=== PATIENT | female | born 1950 | race Caucasian/White ===

== ENCOUNTER 2018-09-09 07:31 | Day surgery (SDC) | payer OTHER ==
[2018-09-08 11:41] VITALS: BMI 29.3
--- NOTE | 2018-09-08 11:44 | HP ---
CHIEF COMPLAINT: Major Depressive Disorder PCP: Dr. Ronnie Mendoza [phone] [facility] HISTORY OF PRESENT ILLNESS: 68 year-old female with a PMH significant for HTN, HLD, Contreras's esophagus, asthma, borderline diabetes, and depression. Patient will be initiating ECT here at [facility] on 09/09/[address] Schneider. Recent Events: --none reported PAST MEDICAL HISTORY: Hypertension Hyperlipidemia Contreras's esophagus Asthma Seasonal allergies Borderline diabetes Major depressive disorder [facility] PAST SURGICAL HISTORY: Tonsillectomy - child Ovarian cyst removal - age 26 Shah's arthroscopy bilateral feet - 2015 Social History: Smoking: never Alcohol: occasional Drugs: no Allergies No Known Drug Allergies Allergy (Verified 09/08/18 11:22) HOME MEDICATIONS: Home Medications Medication Instructions Recorded Aripiprazole 7.5 mg PO DAILY 09/08/18 Atorvastatin Ca [Lipitor] 10 mg PO DAILY 09/08/18 Quinapril HCl 10 mg PO HS 09/08/18 Vortioxetine Hydrobromide 20 mg PO DAILY 09/08/18 [Trintellix] clonazePAM [Klonopin -] 0.25 mg PO BID 09/08/18 clonazePAM [Klonopin -] 0.5 mg PO HS 09/08/18 traZODone HCL [Trazodone HCl] 50 mg PO HS 09/08/18 REVIEW OF SYSTEMS CONSTITUTIONAL: Absent: fever, chills, diaphoresis, generalized weakness, malaise, loss of appetite, weight change HEENT: Absent: rhinorrhea, nasal congestion, throat pain, throat swelling, difficulty swallowing, mouth swelling, ear pain, eye pain, visual changes CARDIOVASCULAR: Absent: chest pain, syncope, palpitations, irregular heart rate, lightheadedness , peripheral edema RESPIRATORY: Absent: cough, shortness of breath, dyspnea with exertion, orthopnea, wheezing, stridor, hemoptysis GASTROINTESTINAL: Absent: abdominal pain, abdominal distension, nausea, vomiting, diarrhea, constipation, melena, hematochezia GENITOURINARY: Absent: dysuria, frequency, urgency, hesitancy, hematuria, flank pain, genital pain MUSCULOSKELETAL: Absent: myalgia, arthralgia, joint swelling, back pain, neck pain SKIN: Absent: rash, itching, pallor HEMATOLOGIC/IMMUNOLOGIC: Absent: easy bleeding, easy bruising, lymphadenopathy, frequent infections ENDOCRINE: Absent: unexplained weight gain, unexplained weight loss, heat intolerance, cold intolerance NEUROLOGIC: Absent: headache, focal weakness or paresthesias, dizziness, unsteady gait, seizure, mental status changes, bladder or bowel incontinence PHYSICAL EXAMINATION Vitals: BP 129/65 p70 RR 18 SpO2 96% RA GENERAL: Awake, alert, and fully oriented, in no acute distress. HEAD: Normal with no signs of trauma. EYES: Pupils equal, round and reactive to light, sclera anicteric, conjunctiva clear. LUNGS: Breath sounds equal, clear to auscultation bilaterally. No wheezes, and no crackles. No accessory muscle use. HEART: Regular rate and rhythm, normal S1 and S2 ABDOMEN: Soft, nontender, not distended MUSCULOSKELETAL: Normal range of motion at all joints. No bony deformities or tenderness. No CVA tenderness. UPPER EXTREMITIES: 2+ pulses, warm, well-perfused. No cyanosis. No clubbing. No peripheral edema. LOWER EXTREMITIES: 2+ pulses, warm, well-perfused. No calf tenderness. No peripheral edema. NEUROLOGICAL: Cranial nerves II-XII intact. Normal speech. ASSESSMENT/PLAN: 68 year-old female with a PMH significant for HTN, HLD, Contreras's esophagus, asthma, borderline diabetes, and depression. Patient presents today for ECT. Cardiac --no cardiac history --Revised Cardiac Risk Index for Pre-Operative Risk: 0 points, 0.4% risk of major cardiac event Pulmonary --no pulmonary history Neurological --no neurological or neurosurgical history; no history of trauma Anesthesia --no reported problems with anesthesia ECT is a low risk procedure. The relative benefits of the planned procedure outweigh the relative risks for this patient at this time. Visit type - Emergency Visit Emergency Visit: No - New Patient This patient is new to me today: Yes Date on this admission: 09/09/18 - Critical Care Critical Care patient: No
--- NOTE | 2018-09-08 14:30 | EKG ---
Test Reason : Blood Pressure : / mmHG Vent. Rate : 065 BPM Atrial Rate : 065 BPM P-R Int : 176 ms QRS Dur : 150 ms QT Int : 472 ms P-R-T Axes : 025 -03 088 degrees QTc Int : 490 ms NORMAL SINUS RHYTHM LEFT BUNDLE BRANCH BLOCK ABNORMAL ECG NO PREVIOUS ECGS AVAILABLE Confirmed by HAYLEY BARCLAY, SANCHEZ ([id number]) on 09/08/2018 2:30:15 PM Referred By: Jose A Schneider Confirmed By:SANCHEZ HARDY MD
[2018-09-09] MEDS ORDERED: KETAMINE HCL 500 MG/10 ML VIAL ONE (08:37)
[2018-09-09 09:43] VITALS: TEMP 97.9
[2018-09-09] MEDS ORDERED: ONDANSETRON 4 MG/2 ML VIAL IVPUSH PRN (09:43)
[2018-09-09] MEDS ORDERED: LACTATED RINGERS SOLUTION 1,000 ML IV SCH (09:45)
[2018-09-09 10:36] VITALS: BP 140/73; PULSE 74
== END 2018-09-09 10:25 | disposition home or self-care (01) ==
LOC: FECT 07:31
PROVIDERS: ATTEND Psychiatry & Neurology Psychiatry
PROC: GZB4ZZZ Other Electroconvulsive Therapy (ICD-10-PCS; principal; 2018-09-09 08:30)
DX: F33.2 Major depressive disorder, recurrent severe without psychotic features (principal)
CPT/HCPCS: 90870; 93005; 93010; 94760

== ENCOUNTER 2018-09-12 05:48 | Day surgery (SDC) | payer OTHER ==
[2018-09-09 10:47] VITALS: BMI 29.3
[2018-09-12] MEDS ORDERED: KETAMINE HCL 500 MG/10 ML VIAL ONE (07:46)
[2018-09-12 08:58] VITALS: BP 132/57; PULSE 70; TEMP 97.4
== END 2018-09-12 09:09 | disposition home or self-care (01) ==
LOC: FECT 05:48
PROVIDERS: ATTEND Psychiatry & Neurology Psychiatry
PROC: GZB4ZZZ Other Electroconvulsive Therapy (ICD-10-PCS; principal; 2018-09-12 08:00)
DX: F33.2 Major depressive disorder, recurrent severe without psychotic features (principal)
CPT/HCPCS: 90870; 94760

== ENCOUNTER 2018-09-14 05:41 | Day surgery (SDC) | payer OTHER ==
[2018-09-14 06:35] VITALS: BMI 29.3
[2018-09-14] MEDS ORDERED: KETAMINE HCL 500 MG/10 ML VIAL ONE (06:59)
[2018-09-14 08:03] VITALS: TEMP 98.4
[2018-09-14 08:25] VITALS: BP 112/81; PULSE 76
== END 2018-09-14 08:27 | disposition home or self-care (01) ==
LOC: FECT 05:41
PROVIDERS: ATTEND Psychiatry & Neurology Psychiatry
PROC: GZB4ZZZ Other Electroconvulsive Therapy (ICD-10-PCS; principal; 2018-09-14 07:30)
DX: F32.9 Major depressive disorder, single episode, unspecified (principal)
CPT/HCPCS: 90870; 94760

== ENCOUNTER 2018-09-16 05:42 | Day surgery (SDC) | payer OTHER ==
[2018-09-16 06:45] VITALS: BMI 29.3
[2018-09-16] MEDS ORDERED: KETAMINE HCL 500 MG/10 ML VIAL ONE (08:04)
[2018-09-16] MEDS ORDERED: ONDANSETRON 4 MG/2 ML VIAL IVPUSH PRN (08:25)
[2018-09-16] MEDS ORDERED: ACETAMINOPHEN 325 MG TABLET (FP) PO PRN (08:25)
[2018-09-16] MEDS ORDERED: LACTATED RINGERS SOLUTION 1,000 ML IV SCH (08:30)
[2018-09-16 09:01] VITALS: TEMP 98
[2018-09-16 09:24] VITALS: BP 130/70; PULSE 69
== END 2018-09-16 09:25 | disposition home or self-care (01) ==
LOC: FECT 05:42
PROVIDERS: ATTEND Psychiatry & Neurology Psychiatry
PROC: GZB4ZZZ Other Electroconvulsive Therapy (ICD-10-PCS; principal; 2018-09-16 07:15)
DX: F32.9 Major depressive disorder, single episode, unspecified (principal)
CPT/HCPCS: 90870; 94760

== ENCOUNTER 2018-09-21 05:48 | Day surgery (SDC) | payer OTHER | END 2018-09-21 08:40 | disposition home or self-care (01) | LOC: FECT 05:48 ==

== ENCOUNTER 2018-09-23 05:39 | Day surgery (SDC) | payer OTHER | END 2018-09-23 08:10 | disposition home or self-care (01) | LOC: FECT 05:39 | PROC: GZB4ZZZ Other Electroconvulsive Therapy (ICD-10-PCS; principal; 2018-09-23 07:00) | DX: F33.2 Major depressive disorder, recurrent severe without psychotic features (principal) ==

== ENCOUNTER 2018-09-28 06:13 | Day surgery (SDC) | payer OTHER | END 2018-09-28 08:50 | disposition home or self-care (01) | LOC: FECT 06:13 ==

== ENCOUNTER 2018-09-30 05:42 | Day surgery (SDC) | payer OTHER | END 2018-09-30 08:45 | disposition home or self-care (01) | LOC: FECT 05:42 ==

== ENCOUNTER 2018-10-03 05:41 | Day surgery (SDC) | payer OTHER | END 2018-10-03 08:32 | disposition home or self-care (01) | LOC: FECT 05:41 ==

== ENCOUNTER 2018-10-05 05:33 | Day surgery (SDC) | payer OTHER | END 2018-10-05 08:30 | disposition home or self-care (01) | LOC: FECT 05:33 | PROC: GZB4ZZZ Other Electroconvulsive Therapy (ICD-10-PCS; principal; 2018-10-05 07:00) | DX: F32.9 Major depressive disorder, single episode, unspecified (principal) ==

== ENCOUNTER 2018-10-07 05:27 | Day surgery (SDC) | payer OTHER | END 2018-10-07 09:08 | disposition home or self-care (01) | LOC: FECT 05:27 ==

== ENCOUNTER 2018-10-10 05:44 | Day surgery (SDC) | payer OTHER | END 2018-10-10 09:00 | disposition home or self-care (01) | LOC: FECT 05:44 ==

== ENCOUNTER 2018-10-12 05:43 | Day surgery (SDC) | payer OTHER ==
[2018-10-12 06:28] VITALS: BMI 29.3
[2018-10-12] MEDS ORDERED: KETAMINE HCL 500 MG/10 ML VIAL ONE (06:52)
[2018-10-12 07:55] VITALS: TEMP 97.6
[2018-10-12] MEDS ORDERED: ACETAMINOPHEN 325 MG TABLET (FP) PO PRN (08:06)
[2018-10-12] MEDS ORDERED: PROMETHAZINE HCL 25 MG/1 ML VIAL IVPUSH PRN (08:06)
[2018-10-12 08:14] VITALS: BP 121/72; PULSE 51
[2018-10-12] MEDS ORDERED: LACTATED RINGERS SOLUTION 1,000 ML IV SCH (08:15)
== END 2018-10-12 08:17 | disposition home or self-care (01) ==
LOC: FECT 05:43
PROVIDERS: ATTEND Psychiatry & Neurology Psychiatry
PROC: GZB4ZZZ Other Electroconvulsive Therapy (ICD-10-PCS; principal; 2018-10-12 07:00)
DX: F32.9 Major depressive disorder, single episode, unspecified (principal)
CPT/HCPCS: 90870; 94760

== ENCOUNTER 2018-10-18 05:50 | Day surgery (SDC) | payer OTHER | END 2018-10-18 08:35 | disposition home or self-care (01) | LOC: FECT 05:50 ==

== ENCOUNTER 2018-10-24 05:45 | Day surgery (SDC) | payer OTHER ==
[2018-10-24 06:34] VITALS: BMI 29.3
[2018-10-24] MEDS ORDERED: KETAMINE HCL 500 MG/10 ML VIAL ONE (06:57)
[2018-10-24] MEDS ORDERED: PROMETHAZINE HCL 25 MG/1 ML VIAL IVPUSH PRN (07:27)
[2018-10-24] MEDS ORDERED: ACETAMINOPHEN 325 MG TABLET (FP) PO PRN (07:27)
[2018-10-24] MEDS ORDERED: LACTATED RINGERS SOLUTION 1,000 ML IV SCH (07:30)
[2018-10-24 07:43] VITALS: TEMP 97.6
[2018-10-24 08:47] VITALS: BP 119/66; PULSE 60
== END 2018-10-24 08:35 | disposition home or self-care (01) ==
LOC: FECT 05:45
PROVIDERS: ATTEND Psychiatry & Neurology Psychiatry
PROC: GZB4ZZZ Other Electroconvulsive Therapy (ICD-10-PCS; principal; 2018-10-24 07:00)
DX: F33.2 Major depressive disorder, recurrent severe without psychotic features (principal)
CPT/HCPCS: 90870; 94760

== ENCOUNTER 2018-11-08 05:36 | Day surgery (SDC) | payer OTHER ==
[2018-11-08 06:55] VITALS: TEMP 98.3; BMI 29.9
[2018-11-08] MEDS ORDERED: KETAMINE HCL 500 MG/10 ML VIAL ONE (07:12)
[2018-11-08 08:55] VITALS: BP 139/69; PULSE 61
--- NOTE | 2018-11-10 14:10 | HP ---
CHIEF COMPLAINT: Major Depressive Disorder PCP: Dr. Ronnie Mendoza [phone] Primary Psychiatrist: Dr. Desmond Gordillo [place] HISTORY OF PRESENT ILLNESS: 68 year-old female with a PMH significant for HTN, HLD, Contreras's esophagus, asthma, borderline diabetes, and depression. Patient began ECT here at [facility] on 09/09/18. She presents today for ECT. Recent Events: --just returned from vacation in [place], feeling well Allergies No Known Drug Allergies Allergy (Verified 11/08/18 06:43) HOME MEDICATIONS: Home Medications Medication Instructions Recorded Aripiprazole 5 mg PO DAILY 09/08/18 Atorvastatin Ca [Lipitor] 10 mg PO DAILY 09/08/18 Quinapril HCl 10 mg PO HS 09/08/18 Vortioxetine Hydrobromide 20 mg PO DAILY 09/08/18 [Trintellix] clonazePAM [Klonopin -] 0.25 mg PO BID PRN 09/08/18 clonazePAM [Klonopin -] 0.5 mg PO HS 09/08/18 Zolpidem Tartrate [Ambien] 10 mg PO HS PRN 11/08/18 REVIEW OF SYSTEMS CONSTITUTIONAL: Absent: fever, chills, diaphoresis, generalized weakness, malaise, loss of appetite, weight change HEENT: Absent: rhinorrhea, nasal congestion, throat pain, throat swelling, difficulty swallowing, mouth swelling, ear pain, eye pain, visual changes CARDIOVASCULAR: Absent: chest pain, syncope, palpitations, irregular heart rate, lightheadedness , peripheral edema RESPIRATORY: Absent: cough, shortness of breath, dyspnea with exertion, orthopnea, wheezing, stridor, hemoptysis GASTROINTESTINAL: Absent: abdominal pain, abdominal distension, nausea, vomiting, diarrhea, constipation, melena, hematochezia GENITOURINARY: Absent: dysuria, frequency, urgency, hesitancy, hematuria, flank pain, genital pain MUSCULOSKELETAL: Absent: myalgia, arthralgia, joint swelling, back pain, neck pain SKIN: Absent: rash, itching, pallor HEMATOLOGIC/IMMUNOLOGIC: Absent: easy bleeding, easy bruising, lymphadenopathy, frequent infections ENDOCRINE: Absent: unexplained weight gain, unexplained weight loss, heat intolerance, cold intolerance NEUROLOGIC: Absent: headache, focal weakness or paresthesias, dizziness, unsteady gait, seizure, mental status changes, bladder or bowel incontinence PHYSICAL EXAMINATION Vital Signs Temperature 98.3 F 11/08/18 08:45 Pulse Rate 61 11/08/18 08:45 Respiratory Rate 18 11/08/18 08:45 Blood Pressure 139/69 11/08/18 08:45 O2 Sat by Pulse Oximetry (%) 97 11/08/18 08:40 GENERAL: Awake, alert, and fully oriented, in no acute distress. HEAD: Normal with no signs of trauma. EYES: Pupils equal, round and reactive to light, sclera anicteric, conjunctiva clear. LUNGS: Breath sounds equal, clear to auscultation bilaterally. No wheezes, and no crackles. No accessory muscle use. HEART: Regular rate and rhythm, normal S1 and S2 ABDOMEN: Soft, nontender, not distended MUSCULOSKELETAL: Normal range of motion at all joints. No bony deformities or tenderness. No CVA tenderness. UPPER EXTREMITIES: 2+ pulses, warm, well-perfused. No cyanosis. No clubbing. No peripheral edema. LOWER EXTREMITIES: 2+ pulses, warm, well-perfused. No calf tenderness. No peripheral edema. NEUROLOGICAL: Cranial nerves II-XII intact. Normal speech. ASSESSMENT/PLAN: 68 year-old female with a PMH significant for HTN, HLD, Contreras's esophagus, asthma, borderline diabetes, and depression. Patient presents today for ECT. Cardiac --no cardiac history --Revised Cardiac Risk Index for Pre-Operative Risk: 0 points, 0.4% risk of major cardiac event Pulmonary --no pulmonary history Neurological --no neurological or neurosurgical history; no history of trauma Anesthesia --no reported problems with anesthesia ECT is a low risk procedure. The relative benefits of the planned procedure outweigh the relative risks for this patient at this time. Visit type - Emergency Visit Emergency Visit: No - New Patient This patient is new to me today: Yes Date on this admission: 11/10/18 - Critical Care Critical Care patient: No
== END 2018-11-08 08:45 | disposition home or self-care (01) ==
LOC: FECT 05:36
PROVIDERS: ATTEND Psychiatry & Neurology Psychiatry
PROC: GZB4ZZZ Other Electroconvulsive Therapy (ICD-10-PCS; principal; 2018-11-08 07:00)
DX: F33.2 Major depressive disorder, recurrent severe without psychotic features (principal)
CPT/HCPCS: 90870; 94760

== ENCOUNTER 2018-11-22 05:41 | Day surgery (SDC) | payer OTHER ==
[2018-11-22 07:00] VITALS: BMI 29.9
[2018-11-22] MEDS ORDERED: KETAMINE HCL 500 MG/10 ML VIAL ONE (07:42)
[2018-11-22 08:47] VITALS: TEMP 97.4
[2018-11-22] MEDS ORDERED: oxyCODONE HCL 5 MG TABLET PO PRN (08:47)
[2018-11-22 09:08] VITALS: BP 129/79; PULSE 71
== END 2018-11-22 09:10 | disposition home or self-care (01) ==
LOC: FECT 05:41
PROVIDERS: ATTEND Psychiatry & Neurology Psychiatry
PROC: GZB4ZZZ Other Electroconvulsive Therapy (ICD-10-PCS; principal; 2018-11-22 07:15)
DX: F33.2 Major depressive disorder, recurrent severe without psychotic features (principal)
CPT/HCPCS: 90870; 94760

== ENCOUNTER 2018-12-06 05:36 | Day surgery (SDC) | payer OTHER | END 2018-12-06 08:50 | disposition home or self-care (01) | LOC: FECT 05:36 ==

== ENCOUNTER 2019-02-14 05:50 | Day surgery (SDC) | payer OTHER ==
[2019-02-14 07:34] VITALS: BMI 31.9
[2019-02-14] MEDS ORDERED: KETAMINE HCL 500 MG/10 ML VIAL ONE (08:10)
[2019-02-14 09:25] VITALS: TEMP 98.7
[2019-02-14 09:43] VITALS: BP 130/70; PULSE 77
--- NOTE | 2019-02-14 11:34 | HP ---
CHIEF COMPLAINT: Major Depressive Disorder PCP: Dr. Ronnie Mendoza [phone] Primary Psychiatrist: Dr. Desmond Gordillo [place] HISTORY OF PRESENT ILLNESS: 68 year-old female with a PMH significant for HTN, HLD, Contreras's esophagus, asthma, borderline diabetes, and depression. Patient began ECT here at [place] on 09/09/18. She presents today for ECT. Recent Events: --completed antibiotics for a sinus infection last month Allergies No Known Drug Allergies Allergy (Verified 11/08/18 06:43) HOME MEDICATIONS: Home Medications Medication Instructions Recorded Aripiprazole 5 mg PO DAILY 09/08/18 Atorvastatin Ca [Lipitor] 10 mg PO DAILY 09/08/18 Quinapril HCl 10 mg PO HS 09/08/18 Vortioxetine Hydrobromide 20 mg PO DAILY 09/08/18 [Trintellix] traZODone HCL [Trazodone HCl] 50 mg PO HS 11/22/18 Omeprazole 20 mg PO DAILY 02/13/19 REVIEW OF SYSTEMS CONSTITUTIONAL: Absent: fever, chills, diaphoresis, generalized weakness, malaise, loss of appetite, weight change HEENT: Absent: rhinorrhea, nasal congestion, throat pain, throat swelling, difficulty swallowing, mouth swelling, ear pain, eye pain, visual changes CARDIOVASCULAR: Absent: chest pain, syncope, palpitations, irregular heart rate, lightheadedness , peripheral edema RESPIRATORY: Absent: cough, shortness of breath, dyspnea with exertion, orthopnea, wheezing, stridor, hemoptysis GASTROINTESTINAL: Absent: abdominal pain, abdominal distension, nausea, vomiting, diarrhea, constipation, melena, hematochezia GENITOURINARY: Absent: dysuria, frequency, urgency, hesitancy, hematuria, flank pain, genital pain MUSCULOSKELETAL: Absent: myalgia, arthralgia, joint swelling, back pain, neck pain SKIN: Absent: rash, itching, pallor HEMATOLOGIC/IMMUNOLOGIC: Absent: easy bleeding, easy bruising, lymphadenopathy, frequent infections ENDOCRINE: Absent: unexplained weight gain, unexplained weight loss, heat intolerance, cold intolerance NEUROLOGIC: Absent: headache, focal weakness or paresthesias, dizziness, unsteady gait, seizure, mental status changes, bladder or bowel incontinence PHYSICAL EXAMINATION Vital Signs - 24 hr 02/14/19 02/14/19 02/14/19 07:21 08:45 08:50 Temperature 98.4 F Pulse Rate 65 69 79 Respiratory 18 16 17 Rate Blood Pressure 126/75 159/79 149/69 O2 Sat by Pulse 96 99 96 Oximetry (%) 02/14/19 02/14/19 02/14/19 08:55 09:00 09:06 Temperature 98.4 F Pulse Rate 73 80 80 Respiratory 15 16 16 Rate Blood Pressure 141/67 138/72 138/72 O2 Sat by Pulse 96 95 95 Oximetry (%) 02/14/19 02/14/19 02/14/19 09:10 09:40 09:45 Temperature 98.7 F 98.7 F 98.7 F Pulse Rate 71 77 77 Respiratory 18 18 18 Rate Blood Pressure 135/70 130/70 130/70 O2 Sat by Pulse 94 L 96 Oximetry (%) GENERAL: Awake, alert, and fully oriented, in no acute distress. HEAD: Normal with no signs of trauma. EYES: Pupils equal, round and reactive to light, sclera anicteric, conjunctiva clear. LUNGS: Breath sounds equal, clear to auscultation bilaterally. No wheezes, and no crackles. No accessory muscle use. HEART: Regular rate and rhythm, normal S1 and S2 ABDOMEN: Soft, nontender, not distended MUSCULOSKELETAL: Normal range of motion at all joints. No bony deformities or tenderness. No CVA tenderness. UPPER EXTREMITIES: 2+ pulses, warm, well-perfused. No cyanosis. No clubbing. No peripheral edema. LOWER EXTREMITIES: 2+ pulses, warm, well-perfused. No calf tenderness. No peripheral edema. NEUROLOGICAL: Cranial nerves II-XII intact. Normal speech. ASSESSMENT/PLAN: 68 year-old female with a PMH significant for HTN, HLD, Contreras's esophagus, asthma, borderline diabetes, and depression. Patient presents today for ECT. Cardiac --BP stable on quinapril --Revised Cardiac Risk Index for Pre-Operative Risk: 0 points, 0.4% risk of major cardiac event Pulmonary --no pulmonary history Neurological --no neurological or neurosurgical history; no history of trauma Anesthesia --no reported problems with anesthesia ECT is a low risk procedure. The relative benefits of the planned procedure outweigh the relative risks for this patient at this time. Visit type - Emergency Visit Emergency Visit: No - New Patient This patient is new to me today: Yes Date on this admission: 02/14/19 - Critical Care Critical Care patient: No
== END 2019-02-14 09:45 | disposition home or self-care (01) ==
LOC: FECT 05:50
PROVIDERS: ATTEND Psychiatry & Neurology Psychiatry
PROC: GZB4ZZZ Other Electroconvulsive Therapy (ICD-10-PCS; principal; 2019-02-14 08:15)
DX: F33.2 Major depressive disorder, recurrent severe without psychotic features (principal)
CPT/HCPCS: 90870; 94760

== ENCOUNTER 2019-02-22 05:48 | Day surgery (SDC) | payer OTHER ==
[2019-02-22 06:27] VITALS: BMI 31.9
[2019-02-22] MEDS ORDERED: KETAMINE HCL 500 MG/10 ML VIAL ONE (07:09)
[2019-02-22] MEDS ORDERED: ACETAMINOPHEN 500 MG TABLET (FP) PO PRN (08:00)
[2019-02-22] MEDS ORDERED: LACTATED RINGERS SOLUTION 1,000 ML IV SCH (08:00)
[2019-02-22] MEDS ORDERED: PROMETHAZINE HCL 25 MG/1 ML VIAL IVPUSH PRN (08:00)
[2019-02-22 08:05] VITALS: TEMP 98.4
[2019-02-22 08:30] LABS: BASO % 0.2 % (0-2.0); HEMATOCRIT 38.4 % (32.4-45.2); LYMPH % 24.6 % (8-40); MCH 29.8 pg (25.7-33.7); MEAN CELL VOLUME 87.8 fl (80-96); MEAN PLT VOLUME 8.2 fl (7.5-11.1); MONO % 5.7 % (3.8-10.2); NEUT % 68.5 % (42.8-82.8); PLATELET COUNT 201 K/MM3 (134-434); RBC 4.37 M/mm3 (3.60-5.2); RDW 12.3 % (11.6-15.6); WHITE BLOOD COUNT 5.3 K/mm3 (4.0-10.8)
[2019-02-22 08:41] VITALS: BP 140/70; PULSE 61
[2019-02-22 08:50] LABS: ALBUMIN 3.9 g/dl (3.4-5.0); BILIRUBIN,TOTAL 0.7 mg/dl (0.2-1); CALCIUM 9.3 mg/dl (8.5-10); CREATININE 0.6 mg/dl (0.55-1.3); MAGNESIUM 1.9 mg/dL (1.8-2.4); POTASSIUM 4.5 mmol/L (3.5-5.1); TOT PROT 6.7 g/dl (6.4-8.2)
== END 2019-02-22 08:40 | disposition home or self-care (01) ==
LOC: FECT 05:48
PROVIDERS: ATTEND Psychiatry & Neurology Psychiatry
PROC: GZB4ZZZ Other Electroconvulsive Therapy (ICD-10-PCS; principal; 2019-02-22 08:00)
DX: F32.9 Major depressive disorder, single episode, unspecified (principal)
CPT/HCPCS: 36415; 80053; 83735; 85025; 90870; 94760

== ENCOUNTER 2019-03-02 05:41 | Day surgery (SDC) | payer OTHER ==
[2019-03-02 07:00] VITALS: BMI 31.8
[2019-03-02] MEDS ORDERED: KETAMINE HCL 500 MG/10 ML VIAL ONE (07:50)
[2019-03-02 09:33] VITALS: BP 149/79; PULSE 79; TEMP 98.2
[2019-03-02] MEDS ORDERED: ACETAMINOPHEN 325 MG TABLET (FP) PO PRN (10:12)
[2019-03-02] MEDS ORDERED: ONDANSETRON 4 MG/2 ML VIAL IVPUSH PRN (10:12)
== END 2019-03-02 09:25 | disposition home or self-care (01) ==
LOC: FECT 05:41
PROVIDERS: ATTEND Psychiatry & Neurology Psychiatry
PROC: GZB4ZZZ Other Electroconvulsive Therapy (ICD-10-PCS; principal; 2019-03-02 07:30)
DX: F33.2 Major depressive disorder, recurrent severe without psychotic features (principal)
CPT/HCPCS: 90870; 94760

== ENCOUNTER 2019-03-07 06:40 | Day surgery (SDC) | payer OTHER ==
[2019-03-02 13:01] VITALS: BMI 31.8
[2019-03-07 07:01] VITALS: TEMP 98.2
[2019-03-07] MEDS ORDERED: KETAMINE HCL 500 MG/10 ML VIAL ONE (07:32)
[2019-03-07 10:04] VITALS: BP 132/81; PULSE 71
== END 2019-03-07 09:20 | disposition home or self-care (01) ==
LOC: FECT 06:40
PROVIDERS: ATTEND Psychiatry & Neurology Psychiatry
PROC: GZB4ZZZ Other Electroconvulsive Therapy (ICD-10-PCS; principal; 2019-03-07 07:45)
DX: F32.9 Major depressive disorder, single episode, unspecified (principal)
CPT/HCPCS: 90870; 94760

== ENCOUNTER 2019-03-10 05:32 | Day surgery (SDC) | payer OTHER ==
[2019-03-10 07:08] VITALS: BMI 30.7
[2019-03-10] MEDS ORDERED: KETAMINE HCL 500 MG/10 ML VIAL ONE (07:32)
[2019-03-10 08:41] VITALS: TEMP 97.8
[2019-03-10 09:12] VITALS: BP 123/74; PULSE 71
--- NOTE | 2019-03-14 10:45 | EKG ---
Test Reason : Blood Pressure : / mmHG Vent. Rate : 075 BPM Atrial Rate : 075 BPM P-R Int : 174 ms QRS Dur : 138 ms QT Int : 456 ms P-R-T Axes : 039 -07 111 degrees QTc Int : 509 ms NORMAL SINUS RHYTHM LEFT BUNDLE BRANCH BLOCK ABNORMAL ECG Confirmed by MD PETERSON, MICHELE ([id number]) on 03/14/2019 10:44:43 AM Referred By: Jose A Schneider Confirmed By:MICHELE WINKLER MD
== END 2019-03-10 09:16 | disposition home or self-care (01) ==
LOC: FECT 05:32
PROVIDERS: ATTEND Psychiatry & Neurology Psychiatry
PROC: GZB4ZZZ Other Electroconvulsive Therapy (ICD-10-PCS; principal; 2019-03-10 07:45)
DX: F32.9 Major depressive disorder, single episode, unspecified (principal)
CPT/HCPCS: 90870; 93005; 94760

== ENCOUNTER 2019-03-14 05:49 | Day surgery (SDC) | payer OTHER ==
[2019-03-10 14:46] VITALS: BMI 30.7
[2019-03-14] MEDS ORDERED: KETAMINE HCL 500 MG/10 ML VIAL ONE (08:00)
[2019-03-14] MEDS ORDERED: ACETAMINOPHEN 325 MG TABLET (FP) PO PRN (09:09)
[2019-03-14 09:10] VITALS: TEMP 98.2
[2019-03-14 09:21] VITALS: BP 138/71; PULSE 68
--- NOTE | 2019-03-14 10:32 | HP ---
CHIEF COMPLAINT: Major Depressive Disorder PCP: Dr. Ronnie Mendoza [phone] Primary Psychiatrist: Dr. Desmond Gordillo [place] HISTORY OF PRESENT ILLNESS: 68 year-old female with a PMH significant for HTN, HLD, Contreras's esophagus, asthma, borderline diabetes, and depression. Patient began ECT here at [place] on 09/09/18. She presents today for ECT. Recent Events: --completed antibiotics for a sinus infection last month Allergies No Known Drug Allergies Allergy (Verified 11/08/18 06:43) HOME MEDICATIONS: Home Medications Medication Instructions Recorded Aripiprazole 5 mg PO DAILY 09/08/18 Atorvastatin Ca [Lipitor] 10 mg PO DAILY 09/08/18 Quinapril HCl 10 mg PO HS 09/08/18 Vortioxetine Hydrobromide 20 mg PO DAILY 09/08/18 [Trintellix] traZODone HCL [Trazodone HCl] 50 mg PO HS 11/22/18 Omeprazole 20 mg PO DAILY 02/13/19 REVIEW OF SYSTEMS CONSTITUTIONAL: Absent: fever, chills, diaphoresis, generalized weakness, malaise, loss of appetite, weight change HEENT: Absent: rhinorrhea, nasal congestion, throat pain, throat swelling, difficulty swallowing, mouth swelling, ear pain, eye pain, visual changes CARDIOVASCULAR: Absent: chest pain, syncope, palpitations, irregular heart rate, lightheadedness , peripheral edema RESPIRATORY: Absent: cough, shortness of breath, dyspnea with exertion, orthopnea, wheezing, stridor, hemoptysis GASTROINTESTINAL: Absent: abdominal pain, abdominal distension, nausea, vomiting, diarrhea, constipation, melena, hematochezia GENITOURINARY: Absent: dysuria, frequency, urgency, hesitancy, hematuria, flank pain, genital pain MUSCULOSKELETAL: Absent: myalgia, arthralgia, joint swelling, back pain, neck pain SKIN: Absent: rash, itching, pallor HEMATOLOGIC/IMMUNOLOGIC: Absent: easy bleeding, easy bruising, lymphadenopathy, frequent infections ENDOCRINE: Absent: unexplained weight gain, unexplained weight loss, heat intolerance, cold intolerance NEUROLOGIC: Absent: headache, focal weakness or paresthesias, dizziness, unsteady gait, seizure, mental status changes, bladder or bowel incontinence PHYSICAL EXAMINATION Vital Signs - 24 hr 03/14/19 03/14/19 03/14/19 07:09 08:25 08:30 Temperature 98.1 F Pulse Rate 63 72 70 Respiratory 18 18 18 Rate Blood Pressure 137/73 156/66 152/73 O2 Sat by Pulse 94 L 97 97 Oximetry (%) 03/14/19 03/14/19 03/14/19 08:35 08:45 09:17 Temperature 98.2 F Pulse Rate 71 65 68 Respiratory 19 18 18 Rate Blood Pressure 150/70 144/72 138/71 O2 Sat by Pulse 98 95 97 Oximetry (%) 03/14/19 09:21 Temperature 98.2 F Pulse Rate 68 Respiratory 18 Rate Blood Pressure 138/71 O2 Sat by Pulse Oximetry (%) GENERAL: Awake, alert, and fully oriented, in no acute distress. HEAD: Normal with no signs of trauma. EYES: Pupils equal, round and reactive to light, sclera anicteric, conjunctiva clear. LUNGS: Breath sounds equal, clear to auscultation bilaterally. No wheezes, and no crackles. No accessory muscle use. HEART: Regular rate and rhythm, normal S1 and S2 ABDOMEN: Soft, nontender, not distended MUSCULOSKELETAL: Normal range of motion at all joints. No bony deformities or tenderness. No CVA tenderness. UPPER EXTREMITIES: 2+ pulses, warm, well-perfused. No cyanosis. No clubbing. No peripheral edema. LOWER EXTREMITIES: 2+ pulses, warm, well-perfused. No calf tenderness. No peripheral edema. NEUROLOGICAL: Cranial nerves II-XII intact. Normal speech. ASSESSMENT/PLAN: 68 year-old female with a PMH significant for HTN, HLD, Contreras's esophagus, asthma, borderline diabetes, and depression. Patient presents today for ECT. Cardiac --BP stable on quinapril --Revised Cardiac Risk Index for Pre-Operative Risk: 0 points, 0.4% risk of major cardiac event Pulmonary --no pulmonary history Neurological --no neurological or neurosurgical history; no history of trauma Anesthesia --no reported problems with anesthesia ECT is a low risk procedure. The relative benefits of the planned procedure outweigh the relative risks for this patient at this time. Visit type - Emergency Visit Emergency Visit: No - New Patient This patient is new to me today: Yes Date on this admission: 03/15/19 - Critical Care Critical Care patient: No
== END 2019-03-14 09:23 | disposition home or self-care (01) ==
LOC: FECT 05:49
PROVIDERS: ATTEND Psychiatry & Neurology Psychiatry
PROC: GZB4ZZZ Other Electroconvulsive Therapy (ICD-10-PCS; principal; 2019-03-14 08:15)
DX: F32.9 Major depressive disorder, single episode, unspecified (principal)
CPT/HCPCS: 90870; 94760

== ENCOUNTER 2019-03-17 05:42 | Day surgery (SDC) | payer OTHER ==
[2019-03-17 06:26] VITALS: BMI 30.7
[2019-03-17] MEDS ORDERED: KETAMINE HCL 500 MG/10 ML VIAL ONE (06:59)
[2019-03-17 08:08] VITALS: TEMP 98.2
[2019-03-17 09:15] VITALS: BP 120/62; PULSE 66
== END 2019-03-17 09:00 | disposition home or self-care (01) ==
LOC: FECT 05:42
PROVIDERS: ATTEND Psychiatry & Neurology Psychiatry
PROC: GZB4ZZZ Other Electroconvulsive Therapy (ICD-10-PCS; principal; 2019-03-17 07:45)
DX: F33.2 Major depressive disorder, recurrent severe without psychotic features (principal)
CPT/HCPCS: 90870; 94760

== ENCOUNTER 2019-03-20 05:52 | Day surgery (SDC) | payer OTHER ==
[2019-03-17 18:04] VITALS: BMI 30.7
[2019-03-20] MEDS ORDERED: KETAMINE HCL 500 MG/10 ML VIAL ONE (06:55)
[2019-03-20 07:50] VITALS: TEMP 97.6
[2019-03-20 08:18] VITALS: BP 124/68; PULSE 64
== END 2019-03-20 08:20 | disposition home or self-care (01) ==
LOC: FECT 05:52
PROVIDERS: ATTEND Psychiatry & Neurology Psychiatry
PROC: GZB4ZZZ Other Electroconvulsive Therapy (ICD-10-PCS; principal; 2019-03-20 08:15)
DX: F33.2 Major depressive disorder, recurrent severe without psychotic features (principal)
CPT/HCPCS: 90870; 94760

== ENCOUNTER 2019-03-22 05:55 | Day surgery (SDC) | payer OTHER ==
[2019-03-22 06:43] VITALS: TEMP 98; BMI 30.7
[2019-03-22] MEDS ORDERED: KETAMINE HCL 500 MG/10 ML VIAL ONE (07:05)
[2019-03-22 08:42] VITALS: BP 144/64; PULSE 65
== END 2019-03-22 08:45 | disposition home or self-care (01) ==
LOC: FECT 05:55
PROVIDERS: ATTEND Psychiatry & Neurology Psychiatry
PROC: GZB4ZZZ Other Electroconvulsive Therapy (ICD-10-PCS; principal; 2019-03-22 08:00)
DX: F33.2 Major depressive disorder, recurrent severe without psychotic features (principal)
CPT/HCPCS: 90870; 94760

== ENCOUNTER 2019-03-28 06:58 | Day surgery (SDC) | payer OTHER ==
[2019-03-28 07:15] VITALS: BMI 30.7
[2019-03-28] MEDS ORDERED: KETAMINE HCL 500 MG/10 ML VIAL ONE (07:36)
[2019-03-28 08:46] VITALS: TEMP 98.3
[2019-03-28 09:11] VITALS: BP 124/72; PULSE 69
== END 2019-03-28 09:15 | disposition home or self-care (01) ==
LOC: FECT 06:58
PROVIDERS: ATTEND Psychiatry & Neurology Psychiatry
PROC: GZB4ZZZ Other Electroconvulsive Therapy (ICD-10-PCS; principal; 2019-03-28 08:15)
DX: F32.9 Major depressive disorder, single episode, unspecified (principal)
CPT/HCPCS: 90870; 94760

== ENCOUNTER 2019-03-31 05:48 | Day surgery (SDC) | payer OTHER ==
[2019-03-31 06:29] VITALS: BMI 30.7
[2019-03-31] MEDS ORDERED: KETAMINE HCL 500 MG/10 ML VIAL ONE (07:00)
[2019-03-31 07:58] VITALS: TEMP 98
[2019-03-31 08:15] VITALS: BP 141/77; PULSE 69
== END 2019-03-31 08:20 | disposition home or self-care (01) ==
LOC: FECT 05:48
PROVIDERS: ATTEND Psychiatry & Neurology Psychiatry
PROC: GZB4ZZZ Other Electroconvulsive Therapy (ICD-10-PCS; principal; 2019-03-31 07:30)
DX: F32.9 Major depressive disorder, single episode, unspecified (principal)
CPT/HCPCS: 90870; 94760

== ENCOUNTER 2019-04-03 05:44 | Day surgery (SDC) | payer OTHER ==
[2019-03-31 11:16] VITALS: BMI 30.7
[2019-04-03 06:22] VITALS: TEMP 98.5
[2019-04-03] MEDS ORDERED: ONDANSETRON 4 MG/2 ML VIAL IVPUSH PRN (06:56)
[2019-04-03] MEDS ORDERED: KETAMINE HCL 500 MG/10 ML VIAL ONE (07:00)
[2019-04-03] MEDS ORDERED: LACTATED RINGERS SOLUTION 1,000 ML IV SCH (07:00)
[2019-04-03 08:23] VITALS: BP 122/76; PULSE 65
== END 2019-04-03 08:25 | disposition home or self-care (01) ==
LOC: FECT 05:44
PROVIDERS: ATTEND Psychiatry & Neurology Psychiatry
PROC: GZB4ZZZ Other Electroconvulsive Therapy (ICD-10-PCS; principal; 2019-04-03 07:15)
DX: F32.9 Major depressive disorder, single episode, unspecified (principal)
CPT/HCPCS: 90870; 94760

== ENCOUNTER 2019-04-05 05:48 | Day surgery (SDC) | payer OTHER ==
[2019-04-05 06:44] VITALS: BMI 30.7
[2019-04-05] MEDS ORDERED: KETAMINE HCL 500 MG/10 ML VIAL ONE (07:10)
[2019-04-05] MEDS ORDERED: ACETAMINOPHEN 325 MG TABLET (FP) PO PRN (08:13)
[2019-04-05] MEDS ORDERED: ONDANSETRON 4 MG/2 ML VIAL IVPUSH PRN (08:13)
[2019-04-05] MEDS ORDERED: LACTATED RINGERS SOLUTION 1,000 ML IV SCH (08:15)
[2019-04-05 08:40] VITALS: TEMP 98.1
[2019-04-05 08:49] VITALS: BP 130/78; PULSE 69
== END 2019-04-05 08:51 | disposition home or self-care (01) ==
LOC: FECT 05:48
PROVIDERS: ATTEND Psychiatry & Neurology Psychiatry
PROC: GZB4ZZZ Other Electroconvulsive Therapy (ICD-10-PCS; principal; 2019-04-05 07:15)
DX: F32.9 Major depressive disorder, single episode, unspecified (principal)
CPT/HCPCS: 90870; 94760

== ENCOUNTER 2019-04-07 05:50 | Day surgery (SDC) | payer OTHER ==
[2019-04-07 06:29] VITALS: TEMP 97.9; BMI 30.7
[2019-04-07] MEDS ORDERED: KETAMINE HCL 500 MG/10 ML VIAL ONE (07:01)
[2019-04-07 08:32] VITALS: BP 121/61; PULSE 69
== END 2019-04-07 08:30 | disposition home or self-care (01) ==
LOC: FECT 05:50
PROVIDERS: ATTEND Psychiatry & Neurology Psychiatry
PROC: GZB4ZZZ Other Electroconvulsive Therapy (ICD-10-PCS; principal; 2019-04-07 07:15)
DX: F32.9 Major depressive disorder, single episode, unspecified (principal)
CPT/HCPCS: 90870; 94760

== ENCOUNTER 2019-04-10 05:54 | Day surgery (SDC) | payer OTHER ==
[2019-04-10 06:29] VITALS: BMI 30.7
[2019-04-10] MEDS ORDERED: KETAMINE HCL 500 MG/10 ML VIAL ONE (06:58)
[2019-04-10] MEDS ORDERED: LACTATED RINGERS SOLUTION 1,000 ML IV SCH (07:00)
[2019-04-10 07:55] VITALS: TEMP 97.8
[2019-04-10 08:30] VITALS: BP 127/72; PULSE 62
== END 2019-04-10 08:32 | disposition home or self-care (01) ==
LOC: FECT 05:54
PROVIDERS: ATTEND Psychiatry & Neurology Psychiatry
PROC: GZB4ZZZ Other Electroconvulsive Therapy (ICD-10-PCS; principal; 2019-04-10 07:45)
DX: F32.9 Major depressive disorder, single episode, unspecified (principal)
CPT/HCPCS: 90870; 94760

== ENCOUNTER 2019-04-12 05:55 | Day surgery (SDC) | payer OTHER ==
[2019-04-12 06:24] VITALS: BMI 30.7
[2019-04-12] MEDS ORDERED: LACTATED RINGERS SOLUTION 1,000 ML IV SCH (07:00)
[2019-04-12] MEDS ORDERED: KETAMINE HCL 500 MG/10 ML VIAL ONE (07:03)
[2019-04-12 07:58] VITALS: TEMP 97.7
[2019-04-12 08:16] VITALS: BP 118/62; PULSE 67
--- NOTE | 2019-04-12 16:11 | HP ---
CHIEF COMPLAINT: Major Depressive Disorder PCP: Dr. Ronnie Mendoza [phone] Primary Psychiatrist: Dr. Desmond Gordillo [place] HISTORY OF PRESENT ILLNESS: 68 year-old female with a PMH significant for HTN, HLD, Contreras's esophagus, asthma, borderline diabetes, and depression. Patient began ECT here at [facility] on 09/09/18. She presents today for ECT. Recent Events: * None reported PAST MEDICAL HISTORY: Hypertension Hyperlipidemia Contreras's esophagus Asthma Seasonal allergies Borderline diabetes Major depressive disorder [facility] PAST SURGICAL HISTORY: Tonsillectomy - child Ovarian cyst removal - age 26 Shah's arthroscopy bilateral feet - 2015 Social History: Smoking: never Alcohol: occasional Drugs: no Allergies No Known Drug Allergies Allergy (Verified 04/07/19 15:28) HOME MEDICATIONS: Home Medications Medication Instructions Recorded Aripiprazole 5 mg PO DAILY 09/08/18 Atorvastatin Ca [Lipitor] 10 mg PO DAILY 09/08/18 Quinapril HCl 10 mg PO HS 09/08/18 Vortioxetine Hydrobromide 20 mg PO DAILY 09/08/18 [Trintellix] traZODone HCL [Trazodone HCl] 50 mg PO HS 11/22/18 Omeprazole 20 mg PO DAILY 02/13/19 REVIEW OF SYSTEMS CONSTITUTIONAL: Absent: fever, chills, diaphoresis, generalized weakness, malaise, loss of appetite, weight change HEENT: Absent: rhinorrhea, nasal congestion, throat pain, throat swelling, difficulty swallowing, mouth swelling, ear pain, eye pain, visual changes CARDIOVASCULAR: Absent: chest pain, syncope, palpitations, irregular heart rate, lightheadedness , peripheral edema RESPIRATORY: Absent: cough, shortness of breath, dyspnea with exertion, orthopnea, wheezing, stridor, hemoptysis GASTROINTESTINAL: Absent: abdominal pain, abdominal distension, nausea, vomiting, diarrhea, constipation, melena, hematochezia GENITOURINARY: Absent: dysuria, frequency, urgency, hesitancy, hematuria, flank pain, genital pain MUSCULOSKELETAL: Absent: myalgia, arthralgia, joint swelling, back pain, neck pain SKIN: Absent: rash, itching, pallor HEMATOLOGIC/IMMUNOLOGIC: Absent: easy bleeding, easy bruising, lymphadenopathy, frequent infections ENDOCRINE: Absent: unexplained weight gain, unexplained weight loss, heat intolerance, cold intolerance NEUROLOGIC: Absent: headache, focal weakness or paresthesias, dizziness, unsteady gait, seizure, mental status changes, bladder or bowel incontinence PHYSICAL EXAMINATION Vital Signs - 24 hr 04/12/19 04/12/19 04/12/19 06:21 07:30 07:35 Temperature 97.6 F Pulse Rate 59 L 71 70 Respiratory 18 22 H 20 Rate Blood Pressure 138/59 L 183/73 H 152/70 O2 Sat by Pulse 98 97 96 Oximetry (%) 04/12/19 04/12/19 04/12/19 07:40 07:45 07:49 Temperature 97.6 F Pulse Rate 67 70 70 Respiratory 12 14 14 Rate Blood Pressure 140/65 114/90 114/90 O2 Sat by Pulse 97 97 97 Oximetry (%) 04/12/19 04/12/19 04/12/19 07:50 08:15 08:21 Temperature 97.7 F 97.7 F Pulse Rate 64 67 67 Respiratory 18 18 18 Rate Blood Pressure 123/64 118/62 118/62 O2 Sat by Pulse 95 95 Oximetry (%) GENERAL: Awake, alert, and fully oriented, in no acute distress. HEAD: Normal with no signs of trauma. EYES: Pupils equal, round and reactive to light, sclera anicteric, conjunctiva clear. LUNGS: Breath sounds equal, clear to auscultation bilaterally. No wheezes, and no crackles. No accessory muscle use. HEART: Regular rate and rhythm, normal S1 and S2 ABDOMEN: Soft, nontender, not distended MUSCULOSKELETAL: Normal range of motion at all joints. No bony deformities or tenderness. No CVA tenderness. UPPER EXTREMITIES: 2+ pulses, warm, well-perfused. No cyanosis. No clubbing. No peripheral edema. LOWER EXTREMITIES: 2+ pulses, warm, well-perfused. No calf tenderness. No peripheral edema. NEUROLOGICAL: Cranial nerves II-XII intact. Normal speech. ASSESSMENT/PLAN: 68 year-old female with a PMH significant for HTN, HLD, Contreras's esophagus, asthma, borderline diabetes, and depression. Patient began ECT here at [place] on 09/09/18. She presents today for ECT. Cardiac --BP stable on current medications --Revised Cardiac Risk Index for Pre-Operative Risk: 0 points, 0.4% risk of major cardiac event Pulmonary --no pulmonary history Neurological --no neurological or neurosurgical history; no history of trauma Anesthesia --no reported problems with anesthesia ECT is a low risk procedure. The relative benefits of the planned procedure outweigh the relative risks for this patient at this time. Visit type - Emergency Visit Emergency Visit: No - New Patient This patient is new to me today: Yes Date on this admission: 04/12/19 - Critical Care Critical Care patient: No
== END 2019-04-12 08:23 | disposition home or self-care (01) ==
LOC: FECT 05:55
PROVIDERS: ATTEND Psychiatry & Neurology Psychiatry
PROC: GZB4ZZZ Other Electroconvulsive Therapy (ICD-10-PCS; principal; 2019-04-12 07:15)
DX: F32.9 Major depressive disorder, single episode, unspecified (principal)
CPT/HCPCS: 90870; 94760

== ENCOUNTER 2019-04-14 05:59 | Day surgery (SDC) | payer OTHER ==
[2019-04-14 06:37] VITALS: BMI 30.7
[2019-04-14] MEDS ORDERED: KETAMINE HCL 500 MG/10 ML VIAL ONE (06:54)
[2019-04-14] MEDS ORDERED: ONDANSETRON 4 MG/2 ML VIAL IVPUSH PRN (07:21)
[2019-04-14 08:01] VITALS: TEMP 98.2
[2019-04-14 09:00] VITALS: BP 126/78; PULSE 64
== END 2019-04-14 08:30 | disposition home or self-care (01) ==
LOC: FECT 05:59
PROVIDERS: ATTEND Psychiatry & Neurology Psychiatry
PROC: GZB4ZZZ Other Electroconvulsive Therapy (ICD-10-PCS; principal; 2019-04-14 07:15)
DX: F32.9 Major depressive disorder, single episode, unspecified (principal)
CPT/HCPCS: 90870; 94760

== ENCOUNTER 2019-04-21 06:55 | Day surgery (SDC) | payer OTHER ==
[2019-04-21 07:08] VITALS: BMI 30.7
[2019-04-21] MEDS ORDERED: KETAMINE HCL 500 MG/10 ML VIAL ONE (07:18)
[2019-04-21] MEDS ORDERED: LACTATED RINGERS SOLUTION 1,000 ML IV SCH (07:45)
[2019-04-21 08:15] VITALS: TEMP 97.9
[2019-04-21 08:40] VITALS: BP 120/68; PULSE 71
== END 2019-04-21 08:45 | disposition home or self-care (01) ==
LOC: FECT 06:55
PROVIDERS: ATTEND Psychiatry & Neurology Psychiatry
PROC: GZB4ZZZ Other Electroconvulsive Therapy (ICD-10-PCS; principal; 2019-04-21 07:30)
DX: F33.2 Major depressive disorder, recurrent severe without psychotic features (principal)
CPT/HCPCS: 90870; 94760

== ENCOUNTER 2019-04-25 05:44 | Day surgery (SDC) | payer OTHER ==
[2019-04-21 11:21] VITALS: BMI 30.7
[2019-04-25 06:36] VITALS: TEMP 98.1
[2019-04-25] MEDS ORDERED: KETAMINE HCL 500 MG/10 ML VIAL ONE (06:51)
[2019-04-25 08:45] VITALS: BP 122/74; PULSE 66
== END 2019-04-25 08:30 | disposition home or self-care (01) ==
LOC: FECT 05:44
PROVIDERS: ATTEND Psychiatry & Neurology Psychiatry
PROC: GZB4ZZZ Other Electroconvulsive Therapy (ICD-10-PCS; principal; 2019-04-25 07:15)
DX: F33.2 Major depressive disorder, recurrent severe without psychotic features (principal)
CPT/HCPCS: 90870; 94760

== ENCOUNTER 2019-05-05 05:41 | Day surgery (SDC) | payer OTHER ==
[2019-05-05 06:45] VITALS: TEMP 97.9; BMI 30.7
[2019-05-05] MEDS ORDERED: KETAMINE HCL 500 MG/10 ML VIAL ONE (06:58)
[2019-05-05 08:16] VITALS: BP 122/65; PULSE 62
== END 2019-05-05 08:20 | disposition home or self-care (01) ==
LOC: FECT 05:41
PROVIDERS: ATTEND Psychiatry & Neurology Psychiatry
PROC: GZB4ZZZ Other Electroconvulsive Therapy (ICD-10-PCS; principal; 2019-05-05 07:00)
DX: F32.9 Major depressive disorder, single episode, unspecified (principal)
CPT/HCPCS: 90870; 94760

== ENCOUNTER → 2019-05-17 | Day surgery (SDC) | payer OTHER ==
[2019-05-10 15:11] VITALS: BMI 30.7
[~2019-05-17] MED LIST: KETAMINE HCL 500 MG/10 ML VIAL ONE
[2019-05-17 08:44] VITALS: TEMP 98.2
[2019-05-17 08:54] VITALS: BP 122/72; PULSE 60
--- NOTE | 2019-05-19 11:56 | HP ---
CHIEF COMPLAINT: Major Depressive Disorder PCP: Dr. Ronnie Mendoza [phone] Primary Psychiatrist: Dr. Desmond Gordillo [place] HISTORY OF PRESENT ILLNESS: 68 year-old female with a PMH significant for HTN, HLD, Contreras's esophagus, asthma, borderline diabetes, and depression. Patient began ECT here at [facility] on 09/09/18. She presents today for ECT. Recent Events: * None reported PAST MEDICAL HISTORY: Hypertension Hyperlipidemia Contreras's esophagus Asthma Seasonal allergies Borderline diabetes Major depressive disorder [facility] PAST SURGICAL HISTORY: Tonsillectomy - child Ovarian cyst removal - age 26 Shah's arthroscopy bilateral feet - 2015 Social History: Smoking: never Alcohol: occasional Drugs: no Allergies No Known Drug Allergies Allergy (Verified 05/10/19 15:07) HOME MEDICATIONS: Home Medications Medication Instructions Recorded Aripiprazole 5 mg PO DAILY 09/08/18 Atorvastatin Ca [Lipitor] 10 mg PO DAILY 09/08/18 Quinapril HCl 10 mg PO HS 09/08/18 Vortioxetine Hydrobromide 20 mg PO DAILY 09/08/18 [Trintellix] traZODone HCL [Trazodone HCl] 50 mg PO HS 11/22/18 Omeprazole 20 mg PO DAILY 02/13/19 REVIEW OF SYSTEMS CONSTITUTIONAL: Absent: fever, chills, diaphoresis, generalized weakness, malaise, loss of appetite, weight change HEENT: Absent: rhinorrhea, nasal congestion, throat pain, throat swelling, difficulty swallowing, mouth swelling, ear pain, eye pain, visual changes CARDIOVASCULAR: Absent: chest pain, syncope, palpitations, irregular heart rate, lightheadedness , peripheral edema RESPIRATORY: Absent: cough, shortness of breath, dyspnea with exertion, orthopnea, wheezing, stridor, hemoptysis GASTROINTESTINAL: Absent: abdominal pain, abdominal distension, nausea, vomiting, diarrhea, constipation, melena, hematochezia GENITOURINARY: Absent: dysuria, frequency, urgency, hesitancy, hematuria, flank pain, genital pain MUSCULOSKELETAL: Absent: myalgia, arthralgia, joint swelling, back pain, neck pain SKIN: Absent: rash, itching, pallor HEMATOLOGIC/IMMUNOLOGIC: Absent: easy bleeding, easy bruising, lymphadenopathy, frequent infections ENDOCRINE: Absent: unexplained weight gain, unexplained weight loss, heat intolerance, cold intolerance NEUROLOGIC: Absent: headache, focal weakness or paresthesias, dizziness, unsteady gait, seizure, mental status changes, bladder or bowel incontinence PHYSICAL EXAMINATION Vital Signs Temperature 98.2 F 05/17/19 08:50 Pulse Rate 60 05/17/19 08:50 Respiratory Rate 18 05/17/19 08:50 Blood Pressure 122/72 05/17/19 08:50 O2 Sat by Pulse Oximetry (%) 96 05/17/19 08:50 GENERAL: Awake, alert, and fully oriented, in no acute distress. HEAD: Normal with no signs of trauma. EYES: Pupils equal, round and reactive to light, sclera anicteric, conjunctiva clear. LUNGS: Breath sounds equal, clear to auscultation bilaterally. No wheezes, and no crackles. No accessory muscle use. HEART: Regular rate and rhythm, normal S1 and S2 ABDOMEN: Soft, nontender, not distended MUSCULOSKELETAL: Normal range of motion at all joints. No bony deformities or tenderness. No CVA tenderness. UPPER EXTREMITIES: 2+ pulses, warm, well-perfused. No cyanosis. No clubbing. No peripheral edema. LOWER EXTREMITIES: 2+ pulses, warm, well-perfused. No calf tenderness. No peripheral edema. NEUROLOGICAL: Cranial nerves II-XII intact. Normal speech. ASSESSMENT/PLAN: 68 year-old female with a PMH significant for HTN, HLD, Contreras's esophagus, asthma, borderline diabetes, and depression. Patient began ECT here at [facility] on 09/09/18. She presents today for ECT. Cardiac --BP stable on current medications --Revised Cardiac Risk Index for Pre-Operative Risk: 0 points, 0.4% risk of major cardiac event Pulmonary --no pulmonary history Neurological --no neurological or neurosurgical history; no history of trauma Anesthesia --no reported problems with anesthesia ECT is a low risk procedure. The relative benefits of the planned procedure outweigh the relative risks for this patient at this time. Visit type - Emergency Visit Emergency Visit: No - New Patient This patient is new to me today: Yes Date on this admission: 05/19/19 - Critical Care Critical Care patient: No
== END | disposition home or self-care (01) ==
LOC: FECT 05:41
PROVIDERS: ATTEND Psychiatry & Neurology Psychiatry
PROC: GZB4ZZZ Other Electroconvulsive Therapy (ICD-10-PCS; principal; 2019-05-17 07:00)
DX: F32.9 Major depressive disorder, single episode, unspecified (principal)
CPT/HCPCS: 90870; 94760

== ENCOUNTER 2019-05-26 05:53 | Day surgery (SDC) | payer OTHER ==
[2019-05-26 06:22] VITALS: TEMP 98; BMI 30.7
[2019-05-26] MEDS ORDERED: KETAMINE HCL 500 MG/10 ML VIAL ONE (06:53)
[2019-05-26 08:23] VITALS: BP 139/79; PULSE 77
[2019-05-26] MEDS ORDERED: ONDANSETRON 4 MG/2 ML VIAL IVPUSH PRN (09:39)
[2019-05-26] MEDS ORDERED: LACTATED RINGERS SOLUTION 1,000 ML IV SCH (09:45)
== END 2019-05-26 08:25 | disposition home or self-care (01) ==
LOC: FECT 05:53
PROVIDERS: ATTEND Psychiatry & Neurology Psychiatry
PROC: GZB4ZZZ Other Electroconvulsive Therapy (ICD-10-PCS; principal; 2019-05-26 07:45)
DX: F32.9 Major depressive disorder, single episode, unspecified (principal)
CPT/HCPCS: 90870; 94760

== ENCOUNTER 2019-06-05 05:49 | Day surgery (SDC) | payer OTHER ==
[2019-05-29 12:23] VITALS: BMI 30.7
[2019-06-05 06:57] VITALS: TEMP 98.1
[2019-06-05] MEDS ORDERED: KETAMINE HCL 500 MG/10 ML VIAL ONE (07:19)
[2019-06-05] MEDS ORDERED: ACETAMINOPHEN 325 MG TABLET (FP) PO PRN (08:03)
[2019-06-05] MEDS ORDERED: ONDANSETRON 4 MG/2 ML VIAL IVPUSH PRN (08:03)
[2019-06-05 08:43] VITALS: BP 126/72; PULSE 62
== END 2019-06-05 08:57 | disposition home or self-care (01) ==
LOC: FECT 05:49
PROVIDERS: ATTEND Psychiatry & Neurology Psychiatry
PROC: GZB4ZZZ Other Electroconvulsive Therapy (ICD-10-PCS; principal; 2019-06-05 07:45)
DX: F33.2 Major depressive disorder, recurrent severe without psychotic features (principal)
CPT/HCPCS: 90870; 94760

== ENCOUNTER 2019-06-14 05:48 | Day surgery (SDC) | payer OTHER ==
[2019-06-14 06:41] VITALS: TEMP 97.8; BMI 30.7
[2019-06-14] MEDS ORDERED: KETAMINE HCL 500 MG/10 ML VIAL ONE (07:28)
[2019-06-14] MEDS ORDERED: LACTATED RINGERS SOLUTION 1,000 ML IV SCH (07:45)
[2019-06-14 08:55] VITALS: BP 135/65; PULSE 79
== END 2019-06-14 08:55 | disposition home or self-care (01) ==
LOC: FECT 05:48
PROVIDERS: ATTEND Psychiatry & Neurology Psychiatry
PROC: GZB4ZZZ Other Electroconvulsive Therapy (ICD-10-PCS; principal; 2019-06-14 08:00)
DX: F32.9 Major depressive disorder, single episode, unspecified (principal)
CPT/HCPCS: 90870; 94760